=== PATIENT | female | born 1990 | race Caucasian/White ===

== ENCOUNTER 2016-08-11 22:17 | Emergency (ER) | payer OTHER ==
[~2016-08-11 22:17] MED LIST: IBUP-1152 PO; LEVO1TAB8 PO; PNV1TABL57 PO; VENL75TA87 PO
[2016-08-11 22:34] VITALS: BP 153/109; PULSE 103; RESP 20; O2SAT 100
--- NOTE | 2016-08-11 23:21 | ED.REPORT ---
HPI-Dental/Mouth Prob Date of Service Aug 11, 2016 ED Provider: Raúl Shaw MD Pt is a healthy 26 y/o female presenting to the ED c/o right upper molar dental pain onset today. She states her tooth #1 is broken and is scheduled for oral surgery extraction on Sunday. She ate something at work today and was trying to get a piece of food that was stuck in the affected tooth out with her fingers and since then has been experiencing shooting pain significantly increased from baseline. She denies fever, chills, dysphagia, nausea, vomiting, facial swelling , neck swelling. Nursing Notes Stated Complaint: DENTAL PAIN Chief Complaint: Dental Nursing Notes Reviewed: Yes Allergies: Coded Allergies: Pork (Verified Allergy, Unknown, 09/15/14) Scheduled IBUPROFEN-Expunged Drug, Do Not Renew! (IBUPROFEN-Expunged Drug, Do Not Renew!) 800 Mg Tablet 800 MG PO Q6HP TAKE WITH FOOD - FOR MILDPAIN PNV CMB#95/FERROUS FUMARATE/FA-Expunged Drug, (-Expunged Drug, Do Not Renew!) 1 Each Tablet 1 EACH PO DAILY Venlafaxine ER (Venlafaxine ER) 75 Mg Tab.er.24 75 MG PO DAILY Miscellaneous Medications Levonorgestrel/Ethinyl Estradiol (Aviane) 1 Each Tablet 1 EACH PO General Time Seen by MD: 23:20 Chief Complaint Tooth pain Hx Obtained From: Patient Arrived By: Walk-in Onset Occurred: 5 - 8 hours ago Symptom Duration: Since onset Location: : Tooth upper R molar Quality: Painful Severity: Current: Moderate Severity: Maximum: Moderate Recent Healthcare: Previous diagnosis Past Medical History Past Medical History none reported Past Surgical History Reports: Tonsillectomy Family History Reports: Cancer Smoking History Never Smoker Social History Alcohol Use: Denies alcohol use Drug Use: Denies drug use Ambulatory Status Independent Review of Systems Constitutional: Denies: Chills, Fever Ears / Nose / Throat: Reports: Toothache, Denies: Throat swelling, Voice change GI: Denies: Dysphagia, Vomiting Complete sys rev & neg: except as marked. Physical Exam Initial Vital Signs Vital Signs (First) Date Time Temp Pulse Resp B/P Pulse Ox O2 Delivery O2 Flow Rate FiO2 08/11/16 22:34 36.6 103 20 153/109 100 Room Air Initial VS: Reviewed, Vital signs abnormal Head / Eyes: Atraumatic, Normocephalic, PERRL Cardiovascular: Intact distal pulses Abdomen / GI: No distention Extremities: Vascular intact, Neuro intact, No swelling, No tenderness Skin: Warm, Dry, No cyanosis Neurologic: Alert, Oriented, Nonfocal Psychiatric: Mood/affect normal, Behavior normal, Normal thought content ENT: Atraumatic, Airway patent, Mucous membranes moist, No pooling of secretions, No trismus, No facial swelling Erupting wisdom tooth which appears to be impacted. Mucousa not swollen. Area tender to palpation. Neck: Atraumatic, Supple, No meningismus, Full range of motion, No swelling General/Constitutional: Awake, Alert, No acute distress, Well appearing, Cooperative, Not toxic appearing Re-Eval/Medical Decision Med Decision/Clinical Course Mod HTN in setting of acute pain. Does not appear infected. will provide vicodin pp Re-Evaluation/Progress : Time of Eval: 23:25 Re-Evaluation/Progress Note: Discharged upon initial interview. F/U instructions and RTER warnings given. Counseled Regarding: Diagnosis, Need for follow-up, When/why to return to ED Discharge & Departure Primary Impression: Pain, dental Disposition: Home Discharge Condition All VS Reviewed: Yes Condition: Stable Additional Instructions: Soft diet until you see your oral surgeon. Rinse mouth with antiseptic mouthwash after eating. Ice to painful areas, keep ice from direct skin contact. Hydrocodone/apap 1-2 every 4 hours as needed for severe pain. Ibuprofen 600mg every 6 hours for milder pain. See your oral surgeon in 2 days as planned. Return for fevers or facial swelling. Referrals: Kelle Sanches MD (PCP) Scribe Attestation Portions of this note were transcribed by Naren Sorenson and Jose Manuel Pascual. I, Dr. Shaw, personally performed the history, physical exam and medical decision- making; I reviewed and confirmed the accuracy of the information in the transcribed note. Signed by Naren Sorenson and Jose Manuel Pascual, Andrew, 08/11/16 - 1998 copies to: Kelle Sanches MD, Donald L MD Aug 11, 2016 23:21 NAREN SORENSON Aug 11, 2016 23:28
[2016-08-11] MEDS ORDERED: _HYDROcodone/APAP 5-325 mg Tablet PO PRN (23:30)
== END 2016-08-11 23:47 | disposition home or self-care (01) ==
LOC: SED 22:17
DX: K08.89 Other specified disorders of teeth and supporting structures (principal); Z91.018 Allergy to other foods